=== PATIENT | female | born 1995 | race Caucasian/White ===

== ENCOUNTER 2024-10-21 11:56 | Outpatient (CLI) | payer BC, SELFPAY ==
--- NOTE | 2024-10-21 12:15 | CRLHL7_ITS ---
For Patients: As a result of the Century Cures Act, medical imaging exams and procedure reports are released immediately into your electronic medical record. You may view this report before your referring provider. If you have questions, please contact your health care provider. OB ULTRASOUND 14 WEEKS ANATOMY SURVEY, 10/21/2024 CLINICAL HISTORY: Anatomy. TECHNIQUE: Transabdominal OB ultrasound. COMPARISON: None. FINDINGS: GA: 24 weeks, 3 days. Position: Vertex. Placenta Cord: Posterior. Technique: TA. Placenta tip to internal OS: 9.1 cm. Umbilical Cord: 3 vessel cord. Placental Insertion: Central. Amniotic Fluid: 4.3 cm. Cervix: Visualized, Technique: TA. Length of closed cervix: 4.4 cm. Observed Structures: Cerebellum: 2.7 cm, 25 weeks 6 days Cisterna Magna: 5.4 mm Nuchal Fold: 4.2 mm Lateral Ventricle: 3.8 mm CSP Midline Falx Choroid Plexus Spine Abdomen: Stomach Abd Cord Insert Urinary Bladder Kidneys Diaphragm Face: Nose/Lips Orbital View Profile Limbs: Upper Extremities Lower Extremities Hands Feet Vascular: 4 Chamber Heart LVOT RVOT 3VV 3VTV Biometry: BDP: 5.8 cm, 23 weeks 5 days. 19.6% HC: 22.0 cm, 24 weeks, 0 days. 18.0% AC: 19.6 cm, 24 weeks 2 days. 36.7% FL: 4.5 cm, 24 weeks 5 days. 45.8% Heart Rate: 155 bpm Age by this US: 24 weeks 4 days LUCAS by this US: 02/06/2025 EFW: 691.6 grams, 1 lb 8 oz Percentile by LUCAS: 38.8% IMPRESSION: Concordance of clinical and sonographic dating. Normal anatomic survey. Thomas Chavez M.D. Diagnostic Radiologist [email or web address] Transcribed: DW/Dictated by: Thomas Chavez MD @ 10/21/2024 2:11:00 PM (Electronically Signed)
== END 2024-10-21 11:57 | disposition home or self-care (01) ==
LOC: US 11:57
PROVIDERS: Visit Provider Advanced Practice Midwife
DX: Z34.92 Encounter for supervision of normal pregnancy, unspecified, second trimester (principal); Z3A.24 24 weeks gestation of pregnancy
CPT/HCPCS: 76805

== ENCOUNTER 2024-10-22 14:46 | Outpatient (CLI) | payer BC, SELFPAY ==
[2024-10-22 15:05] VITALS: BP 131/83; PULSE 87; RESP 16; TEMP 36.7
[2024-10-22 15:53] LABS: Appearance Urine Clear (Clear); Bilirubin Urine Negative (Negative); Blood Urine 2+ (Negative); Color Urine Yellow (Yellow); Glucose Urine Negative (Negative); Ketones Urine Negative (Negative); Leukocyte Esterase Urine 1+ (Negative); Nitrite Urine Negative (Negative); Protein Urine Negative (Negative); Specific Gravity Urine <= 1.005 (1.000-1.030); Urobilinogen Urine 0.2 (0.2-1.0)
[2024-10-22 15:55] LABS: Bacteria Urine Few; Squamous Epithelial Cell Urine Few (None-Few)
--- NOTE | 2024-10-22 15:55 | P.OBLDTN_ITS ---
OB - Triage/Final Diagnosis Visit Information Date of evaluation: 10/22/24 Narrative: Sulma is a 28 year old 1 para 0 at 24.4 weeks gestation by LMP, who presents with vaginal bleeding. She states that she had bright red bleeding with very small clots last night after a bowel movement associated with constipation. The decreased overnight and was gone by the morning. No further bleeding until 1400 this afternoon when she had some dark pink bleeding when she wiped. She has had not had any cramping. She denies discharge, itching, burning,or signs of a UTI besides what she feels is a normal increase if frequency due to . Encouraged bowel regiments to help prevent future constipation. A speculum exam was performed and the cervix is closed. No vaginal bleeding noted from the cervix. A wet prep was collected and there was a scan amount of blood noted on the swab as well as a yellow colored discharge. FHR tracing is reactive for this gestation without contractions noted on the toco or by palpation. She will stay until the wet prep is resulted and is aware that final results for the UA/UC will not be until tomorrow or the following day. Wet prep results before discharge and was +for BV. Metronidazole prescription sent. Evaluation Laboratory results: Laboratory Tests 10/22/24 Range/Units 15:50 Urine Color Pending Urine Appearance Pending Urine pH Pending Ur Specific Colton Pending Urine Protein Pending Urine Glucose (UA) Pending Urine Ketones Pending Urine Blood Pending Urine Nitrite Pending Urine Bilirubin Pending Urine Urobilinogen Pending Ur Leukocyte Esterase Pending Urine RBC Pending Urine WBC Pending Ur Squamous Epith Cells Pending Urine Bacteria Pending Vaginal Trichomonas Pending Vaginal Yeast Pending Vaginal Clue Cells Pending Vital signs: Vital Signs - 24 hr 10/22/24 15:05 Pulse Rate 87 Blood Pressure 131/83
[2024-10-22 15:56] LABS: Clue Cells >20% Clue Cells Seen (None Seen); Trichomonas No Trichomonas Seen (None Seen); Yeast No Yeast Seen (None Seen)
--- NOTE | 2024-10-22 17:33 | PC.OBNST ---
NST Note NST Note Start: 10/22/24 14:57 Freq: ONCE Status: Active Protocol: Document 10/22/24 17:31 ABP (Rec: 10/22/24 17:33 ABP [id number]) NST Note 1 Para (# of births) 0 EDC 02/07/25 Gestational Age In Weeks & Days 24 Weeks & 4 Days Patient Presented with Complaint(s) of Vaginal bleeding Appropriate for Gestational Age Yes KEMI Emery RNC Date 10/22/24 Appropriate for Gestational Age Yes KEMI Meng RN Date 10/22/24 OB NST charge Yes Complete NST Note via Write Note Yes The provider's electronic signature indicates the NST is reactive/appropriate for gestational age. *Note to provider: If an addendum is required, open the patient's chart and click on the note under the Nurse/Allied Health tab.
== END 2024-10-22 16:20 | disposition home or self-care (01) ==
LOC: OB OUT 14:48 → OB 14:48
PROVIDERS: Advanced Practice Midwife; Visit Provider Advanced Practice Midwife
DX: O46.92 Antepartum hemorrhage, unspecified, second trimester (principal); Z3A.24 24 weeks gestation of pregnancy
CPT/HCPCS: 59025; 81001; 87086; 87210; G0463

== ENCOUNTER 2024-11-19 12:53 | Outpatient (CLI) | payer BC, SELFPAY | END 2024-11-19 12:54 | disposition home or self-care (01) | LOC: FRMREF 12:53 | PROVIDERS: Visit Provider Advanced Practice Midwife | DX: Z34.93 Encounter for supervision of normal pregnancy, unspecified, third trimester (principal); Z3A.28 28 weeks gestation of pregnancy | CPT/HCPCS: 86592; 86787 ==

== ENCOUNTER 2025-01-14 13:55 | Outpatient (CLI) | payer BC, SELFPAY | END 2025-01-14 13:56 | disposition home or self-care (01) | LOC: NFLDREF 01-16 00:19 | PROVIDERS: Visit Provider Advanced Practice Midwife | DX: Z34.03 Encounter for supervision of normal first pregnancy, third trimester (principal) | CPT/HCPCS: 87081; 87653 ==

== ENCOUNTER 2025-02-11 15:35 | Outpatient (CLI) | payer BC, SELFPAY ==
[2025-02-12 17:22] LABS: Strep B DNA Probe Negative (Negative)
[2025-02-13 11:34] LABS: Strep B Susceptibility Needed? No
== END 2025-02-11 15:36 | disposition home or self-care (01) ==
LOC: FRMREF 15:45
PROVIDERS: Visit Provider Advanced Practice Midwife
DX: O48.0 Post-term pregnancy (principal); Z3A.40 40 weeks gestation of pregnancy
CPT/HCPCS: 87081; 87653

== ENCOUNTER 2025-02-13 13:50 | Outpatient (CLI) | payer BC, SELFPAY ==
--- NOTE | 2025-02-13 14:00 | CRLHL7_ITS ---
For Patients: As a result of the Cures Act, medical imaging exams and procedure reports are released immediately into your electronic medical record. You may view this report before your referring provider. If you have questions, please contact your health care provider. OB ULTRASOUND BIOPHYSICAL PROFILE, 02/13/2025 CLINICAL HISTORY: Post dates. TECHNIQUE: Real time cherry scale imaging of the fetus was performed. Transabdominal imaging performed. COMPARISON: 10/21/2024. FINDINGS: LUCAS by LMP: 02/07/2025. GA: 40 weeks 6 days. GESTATION: Single. CERVIX: Not visualized. POSITIONING: Vertex. AMNIOTIC FLUID: 2.8 cm SDP. BIOPHYSICAL PROFILE: Gross Body Movements: 2 Tone: 2 Respiratory Activity: 2 Amniotic Fluid SDP: 2 Total Score: 8/8 PLACENTA: Technique: TA. Placenta Position: Fundal. DOPPLERS: Heart Rate: 159 bpm. IMPRESSION: 1. Normal biophysical profile score 8/8. 2. Vertex position. Thomas Chavez M.D. Diagnostic Radiologist [email or web address] Transcribed: 3:34 pm DW/Dictated by: Thomas Chavez MD @ 02/13/2025 3:26:00 PM (Electronically Signed)
== END 2025-02-13 13:51 | disposition home or self-care (01) ==
LOC: US 13:50
PROVIDERS: Visit Provider Advanced Practice Midwife
DX: O48.0 Post-term pregnancy (principal); Z3A.40 40 weeks gestation of pregnancy
CPT/HCPCS: 76819

== ENCOUNTER 2025-02-15 04:15 | Inpatient (IN) | payer BC, SELFPAY ==
[2025-02-15] VITALS (30 sets, daily range): BP systolic 109–140; BP diastolic 57–84; PULSE 72–124; RESP 16–18; TEMP 36.4–37.2; O2SAT 95–98; BMI 37.4
--- NOTE | 2025-02-15 07:16 | W.PM.LDBA ---
Subjective History of Present Illness Date Seen: 02/15/25 Narrative: Sulma is a 29 yo at 41 1/7 weeks gestation being admitted to Labor and Delivery for spontaneous onset of labor. She reports her contraction started Sunday evening and were irregular throughout the night into Sunday, sometimes 20-30 minutes or more apart. They became closer together Sunday evening. She had some bloody show but denies any leaking of fluid. She endorses movement. She has only had a little bit of rest since yesterday. She is coping well but was offered options this morning and has desired to try to shut down the lights and nap for about anhour. She is supported in labor by her , Pilo. Her full history and physical was dictated by Octaviano on 01/21/2025. Please see this for details. Specific Issues/Plans G1 : [facility]o Transfer from [facility] at 22.4 weeks gestation H&P: Anya Ramirez CNM on 01/21/25 #Asthma, mild #Vaping, not currently using nicotine 07/08/2024: Blood type: A+, antibody screen negative.??? Hgb: 14.7??? Platelets: 370??? Rubella: Immune??? Varicella: not included in transfer records, immune RPR: non-reactive??? HBsAg: non-reactive??? Hep C: negative? HIV: negative??? UC: negative? GC/Chlamydia: negative/negative??? Pap (04/12/2023): NIL??? Genetic screenin08/06/2024, low risk? 1st trimester: 9.0 weeks by US, 9.3 weeks by LMP. Efren 02/07/2025 by LMP. SIUP.??? Anatomy scan: SIUP with posterior placenta and adequate amniotic fluid. Unremarkable anatomy with suboptimal views of heart and profile, follow up in 4 weeks recommended. EFW 25%ile. Other: 10/21/2024: Concordance of clinical and sonographic dating. Normal anatomic survey. Tdap: 12/04/24 Mental health: 12/19/24 HGB 01/01/25 GBS: 01/14/25 OB - Problem Based A/P Additional Plan (1) Pain during labor: Status: Acute (2) Spontaneous onset of labor: Status: Acute (3) Post term , 41 weeks: Status: Acute (4) Asthma: Status: Acute Plan ASSESSMENT:? 29 yo at 41.1 weeks gestation? complicated by:?Asthma, mild, Vaping, not currently using nicotine Labor type: Spontaneous, [place] labor? Category 1 FHR pattern.?? Labor complicated by: none? GBS negative? ? PLAN:? 1. Routine intrapartum cares as ordered. Continue with expectant management. Offered AROM, declines at this time. 2. Monitoring per policy, intermittent? 3. Planning unmedicated . Desires water . Consent signed. Hep C negative. Candidate for analgesia of choice.?? 4. Patient encouraged to reposition and ambulate to promote physiologic labor and .? 5. Anticipate ? Delivery/Labor/Induction Plan Plan: expectant management OB Exam Physical Exam Vital signs: Temp Pulse BP Pulse Ox 97.5 F L 100 110/71 97 02/15/25 05:51 02/15/25 04:22 02/15/25 04:22 02/15/25 04:22 Narrative: Vitals Reviewed Constitutional:? Alert and oriented x3 HEENT:? Normocephalic, atraumatic Neck:? Supple Lungs:? Clear to auscultation bilaterally Heart:? Regular rate and rhythm, no murmur, rub or gallop Abdomen:? Soft, nontender, and gravid. Vertex by Kam's, confirmed with cervical exam. Extremities:? No edema or erythema Cervix: 5 cm/100%/2 station/vertex per RN NST: 135 bpm/moderate variability/15x15 accelerations/no decelerations/contractions every 3-5 minutes Detailed Labor and Delivery Exam Patient Gravid: no
[2025-02-15] MEDS: fentaNYL 100 MCG/2 ML inj IVP (11:29)
[2025-02-15] MEDS: SODIUM CHLORIDE 0.9 % (FLUSH) 10 ML SYRINGE IVF (11:55)
[2025-02-15 12:06] LABS: Basophils Percent Auto 0.1 % (0.0-3.0); Eosinophils Percent Auto 0.1 % (0.0-7.0); Hematocrit 43.9 % (33.0-51.0); Immature Granulocytes Pct Auto 0.3 %; Lymphocytes Percent Auto 3.9 % (20-44); Mean Corpuscular HGB Conc 34 gm/dL (32-36); Mean Corpuscular Hemoglobin 30 pg (26-34); Mean Corpuscular Volume 89 fL (80-100); Monocytes Percent Auto 3.9 % (0.0-11.0); Neutrophils Percent Auto 91.7 % (42.0-72.0); Platelet Count* 219 K/uL (140-440); RDW Coefficient of Variation % 13.6 % (11.5-15.5); Red Blood Count 4.96 m/uL (4.00-5.20); White Blood Count* 18.26 K/uL (4.50-11.00)
[2025-02-15 12:09] LABS: Slide Review Reflex No
[2025-02-15] MEDS: ONDANSETRON 2 MG/ML inj 4 MG IV (13:34)
[2025-02-15] MEDS: OXYTOCIN 10 UNIT/ML INJ IM (16:46)
--- NOTE | 2025-02-15 17:20 | W.PM.OBVAGDE ---
OB Procedure Vag Delivery Mother Details Mother Details: The patient is a 29 year-old, 1, now Para 1, admitted on 02/15/25 at 41.1 weeks gestation. : 1 Para: 1 Weeks Gestation: 41.1 Admission Date: 02/15/25 Additional Details Amniotic Membrane Status: SROM Amniotic Membrane Rupture Date: 02/15/25 Amniotic Membrane Rupture Time: 07:50 Amniotic Membrane Fluid Description: Clear Analgesia/Anesthesia Type: Fentanyl (x1 dose) Waterbirth: Yes Pitcoin: Yes ([facility] only) Intrapartal Events: None Labor Onset: 11:00 Complete: 16:04 Pushin:04 Heart: heart tones during second stage were category II with decelerations during the contractions that resolved between. Baseline change noted with the last 10+ minutes of pushing with moderate variability. Delivery Details Delivery Date: 02/15/25 Delivery Time: 16:33 Route of delivery: Infant Gender: Female Infant Viability: Alive; Heart Rate Present Position at Delivery: OA Delivery Details: Patient was admitted for spontaneous onset of labor and progressed normally. She had SROM of clear fluid at 0750. She utilized position changes, the shower, activity, and a dose of IV fentanyl to help with labor progression and to get rest when able. She entered the tub at 1430. Patient requested cervical exam around that time and was 8.5 cm. She began to feel intense pressure at 1539 and anterior lip was palpated with SVE per patient request. She was encouraged to try positions to assist in resolution of lip and she did these successfuly. At completion of these she began to involuntarily push. Patient was assumed complete with pushing at 1604. of a viable female at 1633 in semi-reclined position in the tub. Vertex delivered OA. Tight nuchal cord was identified and reduced at the perineum. No shoulder. Body delivered easily and without incident. Infant passed to mothers abdomen. She was stimulated but limp and attempted to cry with weak effort decision was made to clamp and cut at <60 seconds. She was taken by the warmer and stimulated by the RN with vigourous cry. APGARS were 5 at one minute and 8 at five minutes respectively. Mouth was bulb suctioned. Intact placenta with a 3 vessel cord delivered spontaneously at 1638 in the tub. She was escorted out of the tub after with minimal bleeding. Fundus firm. 1st degree perineal laceration well approximated and hemostatic identified and not repaired. QBL 25 cc with EBL 300 cc for total of 325 cc. Mother and baby stable; mother plans to breastfeed. Infant weight pending. 1 Minute Interval Total Score: 5 5 Minute Interval Total Score: 8 Additional Details Shoulder Dystocia: No Placenta Delivery Time: 16:38 Placental Delivery Description: Spontaneous Procedure Done: Global Blood Loss: 325 Laceration: Perineal - 1st Degree (not repaired) Blood Loss Measurement Type: QBL (+ EBL in tub) Bakri Used: No Sponge/Need Count Correct: Yes Cord Vessel Description: 3 Vessels, Nuchal Cord, Tight and Reduced Event Summary Status: Mother and infant were stable after delivery. Disposition: floor
[2025-02-15] MEDS: IBUPROFEN 600 MG TABLET PO (21:47)
[2025-02-16 00:31] VITALS: BP 105/72; PULSE 103; RESP 18; O2SAT 96
[2025-02-16 00:32] VITALS: TEMP 36.9
[2025-02-16 05:35] VITALS: BP 107/73; PULSE 90; RESP 16; TEMP 36.5; O2SAT 96
[2025-02-16 09:24] VITALS: BP 106/66; PULSE 90; RESP 16; TEMP 36.7; O2SAT 97
--- NOTE | 2025-02-16 09:55 | PM.OBDSVD1 ---
DS: Providers Provider Date Seen: 02/16/25 Date of admission: 02/15/25 04:15 Primary care physician: Not a Local Provider Admitting Clinician: Mona Barrera CNM Attending Physician on discharge: Sergey Ramirez CNM Date of Discharge: 02/16/25 DS: Diagnosis Discharge Diagnosis (1) (normal spontaneous vaginal delivery): Status: Acute (2) care and examination immediately after delivery: Status: Acute (3) Lactating mother: Status: Acute Exam Narrative: Exam Narrative: VSS, afebrile GENERAL APPEARANCE: ?normal affect, alert, no distress MOOD: ?appropriate HEENT: normocephalic, neck supple, full ROM CHEST: ?Symmetrical chest wall movement. ?Normal respiratory effort. ?Clear to auscultation HEART: ?regular rate and rhythm ABDOMEN: ?soft, non-tender. Uterine fundus is firm, at Umbilicus, Midline and is appropriate for the stage of recovery. ?Bowel sounds present. PERINEUM: ?mild edema of the perineum, there is a 1st degree laceration that is healing well. EXTREMITIES: ?normal and no edema Const: Vital Signs, click to edit/add: Vital Signs - 24 hr 02/15/25 10:42 02/15/25 10:45 02/15/25 11:58 Temperature 98.6 F Pulse Rate 97 75 Pulse Rate [Pulse Oximeter] Respiratory Rate Blood Pressure 125/63 114/57 L Blood Pressure [Ri ght Arm] Pulse Oximetry Oxygen Delivery Ca thod 02/15/25 12:00 02/15/25 12:59 02/15/25 13:59 Temperature 98.4 F Pulse Rate 85 80 Pulse Rate [Pulse Oximeter] Respiratory Rate Blood Pressure 136/62 122/58 L Blood Pressure [Ri ght Arm] Pulse Oximetry Oxygen Delivery Ca thod 02/15/25 14:00 02/15/25 16:11 02/15/25 16:11 Temperature 98.0 F 98.1 F Pulse Rate 100 88 Pulse Rate [Pulse Oximeter] Respiratory Rate 16 Blood Pressure 120/75 128/84 Blood Pressure [Ri ght Arm] Pulse Oximetry 98 Oxygen Delivery Ca thod 02/15/25 16:44 02/15/25 16:45 02/15/25 17:00 Temperature Pulse Rate 111 H 112 H Pulse Rate [Pulse Oximeter] Respiratory Rate 16 Blood Pressure 140/70 H 112/65 Blood Pressure [Ri ght Arm] Pulse Oximetry Oxygen Delivery Ca thod 02/15/25 17:00 02/15/25 17:14 02/15/25 17:15 Temperature Pulse Rate 100 Pulse Rate [Pulse Oximeter] Respiratory Rate 16 16 Blood Pressure 125/67 Blood Pressure [Ri ght Arm] [facility] 17:29 02/15/25 17:30 02/15/25 17:45 Temperature Pulse Rate 105 H Pulse Rate [Pulse Oximeter] Respiratory Rate 16 16 Blood Pressure 137/72 Blood Pressure [Ri ght Arm] Pulse Oximetry [facility] 02/15/25 17:48 02/15/25 17:59 02/15/25 18:00 Temperature Pulse Rate 100 121 H Pulse Rate [Pulse Oximeter] Respiratory Rate 16 Blood Pressure 126/61 126/59 L Blood Pressure [Ri ght Arm] Pulse Oximetry [facility] 02/15/25 18:14 02/15/25 18:15 02/15/25 18:29 Temperature Pulse Rate 110 H 103 H Pulse Rate [Pulse Oximeter] Respiratory Rate 16 Blood Pressure 123/62 139/60 Blood Pressure [Ri ght Arm] Pulse Oximetry [facility] 02/15/25 18:30 02/15/25 20:08 02/16/25 00:31 Temperature 99.0 F Pulse Rate Pulse Rate [Pulse Oximeter] 124 H 103 H Respiratory Rate 16 18 18 Blood Pressure Blood Pressure [Ri ght Arm] 115/74 105/72 Pulse Oximetry 95 96 [facility] Room Air 02/16/25 00:32 02/16/25 05:35 02/16/25 09:24 Temperature 98.4 F 97.7 F 98.0 F Pulse Rate Pulse Rate [Pulse Oximeter] 90 90 Respiratory Rate 16 16 Blood Pressure Blood Pressure [Ri ght Arm] 107/73 106/66 Pulse Oximetry 96 [facility] Room Air Documenting provider has reviewed patient's vital signs: yes OB - DS: Summary Hospital Course Hospital Course: Sulma is a 29 y.o. who was admitted to L & D for labor. ?She had an uncomplicated NVD.?The patient feels well. ?The pain is well controlled with current medications. ?She has no new complaints. ?She is breast feeding and reports things are going well.? the patient has done well.? Vitals have been stable.? She has remained afebrile.? Has a good appetite, is tolerating a general diet. ?She is voiding without difficulty.? She is passing gas and has not had a bowel movement.? She is ambulating and denies any dizziness.? Has Small amount of rubra lochia. ?She is planning nothing for prevention. She is requesting a 24 hour discharge today. Peripartum Data Infant delivery method: Vaginal Laceration description: Perineal - 1st Degree complications: none Hiram Gender: Female Discharge Plan: Home A Gender: Female Infant Discharge Plan: Home Status at Discharge Functional status at discharge: independent ambulation Overall status at discharge: patient is progressing back to baseline Time Spent with Patient Time attestation: Total time spent providing and/or coordinating discharge services: Time spent: Less than 30 minutes Discharge Plan Discharge Disposition: Home, Self-Care Date of Admission: 02/15/25 04:15 Attending Provider on Discharge: Sergey Ramirez Primary Care Provider: Provider,Not a Local Condition: Stable Anticipated Discharge Date/Time: 02/16/25 18:00 Discharge Medications: New acetaminophen 500 mg Tablet 1,000 mg PO Q6H PRNQty: 0 0RF docusate sodium 100 mg Capsule 100 mg PO DAILY Qty: 90 1RF ibuprofen 600 mg Tablet 600 mg PO Q6H PRNQty: 60 0RF Continued acetyltyrosine-vitamin B6 350-5 mg capsule 1 cap PO DAILY calcium polycarbophil [Fiber (calcium polycarbophil)] 625 mg tablet 1,250 mg PO QDAY ondansetron 4 mg tablet,disintegrating 4 mg PO Q8H docosahexaenoic acid 200 mg capsule 200 mg PO DAILY Unisom (doxylamine) 25 mg tablet 25 mg PO QHS PRN albuterol 90 mcg/actuation aerosol 90 mcg inhalation .PRN DHA 200 mg capsule 200 mg PO DAILY docusate sodium [Colace] 100 mg capsule 100 mg PO QDAY Discharge Orders: Discharge Order (Routine); Ordered 02/16/25 Ordered By: Sergey Ramirez Patient Education: OB Over the Counter Medication Information, OB Vaginal/Breast Feeding Additional Instructions: Discharge instructions were reviewed with the patient including signs and symptoms of infection and home going medications Nothing vaginally for 6 weeks: no tampons or intercourse Off Work or School for 6 weeks 2-week visit: discuss feeding concerns, review control options and screen for anxiety/depression. 6-week visit for an annual exam. consultation services are available to all mothers and babies for the first year after delivery.? To make an appointment, please call [phone]. Activity Level: Activity as Tolerated Discharge Diet: Regular Follow Up Appointments: [facility] [Provider Group] Forms: [employer] Info Instructions
[2025-02-16] MEDS: IBUPROFEN 600 MG TABLET PO (11:29)
[2025-02-16 16:00] VITALS: BP 97/62; PULSE 70; RESP 16; TEMP 36.5; O2SAT 97
[2025-02-17 13:21] LABS: Rapid Plasma Reagin (RPR) Non Reactive (Non Reactive)
== END 2025-02-16 19:30 | disposition home or self-care (01) | DRG 560 ==
LOC: OB OUT 05:13 → OB 05:13
PROVIDERS: Admitting Provider Advanced Practice Midwife; Visit Provider Advanced Practice Midwife
DX: O48.0 Post-term pregnancy (principal); O70.0 First degree perineal laceration during delivery; Z3A.41 41 weeks gestation of pregnancy; Z37.0 Single live birth; O26.86 Pruritic urticarial papules and plaques of pregnancy (PUPPP); O76 Abnormality in fetal heart rate and rhythm complicating labor and delivery; J45.909 Unspecified asthma, uncomplicated
CPT/HCPCS: 36415; 76819; 85025; 86592; 86850; 86900; 86901; A9270; J2405; J2590; J3010

== ENCOUNTER 2025-02-25 08:38 | Outpatient (CLI) | payer BC, SELFPAY ==
--- NOTE | 2025-02-25 15:45 | W.PM.LAC.MC ---
Consult Note - Mom Date of Visit Date of visit: 02/25/25 Reason for consultation: Assistance Needed (not able to latch without a nipple shield) Visit Code: Visit Patient's Information Phone number: [phone] : 1 Para: 1 Allergies Penicillins Allergy (Severe, Verified 02/15/25 04:46) Hives Mother's Medical History: Medical History (Updated 02/19/25 @ 00:01 by Background Dadeo) Vaping nicotine dependence, tobacco product ?F17.290 - Nicotine dependence, other tobacco product, uncomplicated (ICD-10) Polymorphic eruption of ?O26.86 - Pruritic urticarial papules and plaques of (PUPPP) (ICD-10) Asthma ?J45.909 - Unspecified asthma, uncomplicated (ICD-10) PCOS (polycystic ovarian syndrome) ?E28.2 - Polycystic ovarian syndrome (ICD-10) Elevated hemoglobin A1c ?R73.09 - Other abnormal glucose (ICD-10) Delivery Information Delivery type: Vaginal Gestational Age: 41+1 Gestational Weight For Age: AGA Weight: 3.41 kg Discharge Weight: 3.266 kg Percentage weight loss: 4.3 Baby's Information Medications: PNV, Ibu, Acetaminophen, Vit D, stool softener Baby's Age at Visit: 1 days Baby's Provider or Clinic: [facility] Jaundice: No Past Experience Past Experience: No Current Frequency of Day Feedings: every 2 hrs, needs waking for feedings, not always interested Frequency of Night Feedings: every 3 hrs, wakes more independently Both Breasts: Yes (both offered) Suck: strong Latch: with shield, painful, L>R Length of Time: 12-20 minutes Pumping Pumping: Yes Quantity Pumped: about 2 oz after a feeding Supplementing EBM Supplement: No Formula Supplement: No Baby Elimination Number of Wet Diapers a Day: ea feeding Number of BM a Day: 5-6/day, yellow and seedy Breast/Nipple Condition Breast Information: Breasts are symmetrical with rounded lower quadrants, intramammary distance is less than 1.5 inches. No erythema. Nipples are supple, everted prior to feeding. Breast Shape: Round Engorgement: No Maternal Nipple Condition - Left: Common Nipple Maternal Nipple Condition - Right: Common Nipple Sore Nipples: Yes Interventions for Sore Nipples: Lansinoh/Nipple Cream and Soothies/Hydrogel Pads Baby Assessment Skin: Normal Tongue/frenulum: Normal/elastic Palate: Average Lips: Relaxed and Symmetrical Jaw Alignment: Symmetrical Mucosa: [employer], moist Onsite Observation Pre-Feed weight: 3.31 kg (up 170gms in 7 days, average 24gm/day) Post-Feed weight: 3.356 kg Milk Transferred (mL): 46 Position: Cross cradle Attachment/latch-on achieved: Easily (able to latch baby without nipple shield using breast sandwich/asymmetric latch technique) Suck pattern: Suck burst and normal rest Swallow: Audible, consistent and Gulping Behavior following feed: Alert, content Pre-Nursing Left Nipple: Within Normal Limits Pre-Nursing Right Nipple: Within Normal Limits Post-Nursing Left Nipple: Within Normal Limits Post-Nursing Right Nipple: Within Normal Limits Assessments/Interventions Assessments/Interventions: Avery latched well to mom's LEFT breast, latched easily without shield and stayed nursing for 6 minutes. Transferred 26 ml of milk and unlatched herself Avery then latched to mom's RIGHT breast, latched easily and without shield and nursed for another 8 minutes Transferred 20 ml of milk. Total milk transferred was 46 ml; avery offered breast to latch back on and declined, was relaxed and content. Mom does not feel empty and able to easily express milk to offer baby and baby purses lips shut Isrraele needed minimal support to stay latched; mom kept baby drawn close to abdomen and this was enough Education provided: Early feeding cues to maximize timing of latching, Asymmetric latch technique for wide/deep latch to increase milk, Transfer for baby and increase comfort for mom, Supply/demand nature of milk supply, Sore nipple treatment options, Use of nipple shield (if needed, ensure deep latch to heal/prevent nipple soreness and prevent nipple shield from slipping off mom's nipple) and Pumping for milk management Follow-Up Suggested follow up: Appointment as needed Time Spent Time spent with patient (min): 75 Meds Home Medications and Allergies Home Medications ?Medication ?Instructions ?Recorded ?Confirmed ?Type acetyltyrosine 350 mg-vitamin B6 5 1 cap PO DAILY 10/08/24 02/15/25 History mg capsule albuterol 90 mcg/actuation aerosol 90 mcg inhalation .PRN 10/08/24 02/15/25 History inhaler calcium polycarbophil 625 mg 1,250 mg PO QDAY 10/08/24 02/15/25 History tablet (Fiber (calcium polycarbophil)) docosahexaenoic acid 200 mg capsule 200 mg PO DAILY 10/08/24 02/15/25 History doxylamine succinate 25 mg tablet 25 mg PO QHS PRN 10/08/24 02/15/25 History (Unisom (doxylamine)) ondansetron 4 mg disintegrating 4 mg PO Q8H 10/08/24 02/15/25 History tablet docosahexaenoic acid 200 mg 200 mg PO DAILY 12/19/24 02/15/25 History capsule ( DHA) docusate sodium 100 mg capsule 100 mg PO QDAY 02/11/25 02/15/25 History (Colace) acetaminophen 500 mg tablet 1,000 mg (2 x 500 mg) PO Q6H PRN 02/16/25 Rx #0 tabs docusate sodium 100 mg capsule 100 mg PO DAILY #90 caps 02/16/25 Rx ibuprofen 600 mg tablet 600 mg PO Q6H PRN #60 tabs 02/16/25 Rx Allergies Allergy/AdvReac Type Severity Reaction Status Date / Time Penicillins Allergy Severe Hives Verified 02/15/25 04:46
== END 2025-02-25 08:39 | disposition home or self-care (01) ==
LOC: OB LAC 08:38
PROVIDERS: Visit Provider Obstetrics & Gynecology
DX: Z39.1 Encounter for care and examination of lactating mother (principal)
CPT/HCPCS: G0463

== ENCOUNTER 2025-08-05 07:55 | Outpatient (CLI) | payer BC, SELFPAY ==
--- NOTE | 2025-08-05 08:15 | MR_ITS ---
EXAM: MRI EXAMINATION OF THE LEFT WRIST WITHOUT CONTRAST CLINICAL INFORMATION: Female, 29 years old, with left wrist pain and swelling. INDICATION: Evaluate for cyst. PRIOR SURGERY: None reported. PLAIN FILMS: None available. COMPARISONS: No prior MRIs available. TECHNICAL INFORMATION: Using a 1.5T MR scanner and a localizing surface coil: coronals: T1, PDFS, 3D T2 sagittals: PDFS axials: PD, PDFS SEDATION: None CONTRAST: None FINDINGS: Bones and joints: No stress/occult fracture, bone marrow edema, or carpal bone osteonecrosis. No discrete osteochondral lesion. No significant effusion in the distal radioulnar, radiocarpal, midcarpal, or carpometacarpal joint spaces. Triangular fibrocartilage: The triangular fibrocartilage proper, distal dorsal and volar radioulnar ligaments, ulnar collateral ligament/meniscal homologue, ulnotriquetral, and ulnolunate ligaments are intact. The extensor carpi ulnaris is unremarkable. Ligaments: No evidence for scapholunate or lunotriquetral interosseous ligament disruption. Interosseous distances between the scaphoid, lunate and triquetrum appear uniform and normal. Alignment:?Type I lunate. The capitolunate angle measures 10? (<30? normal). The scapholunate angle measures 50? (30?-60? normal). Ulnar variance is neutral. Tendons: The flexor tendons are normal in caliber and signal intensity throughout their course including within the carpal tunnel. The tendons within the 1st-6th extensor compartments are intact. No significant tendinopathy, and without tenosynovitis, tendon split or tendon disruption. Neurovascular structures: The median nerve appears normal in caliber and signal intensity throughout its course including within the carpal tunnel. The ulnar nerve is intact and normal in appearance. No evidence for intrinsic/extrinsic mass within Guyon's canal. Soft tissues: Approximately 6 x 7 x 9 mm volar ganglion cyst arising from the STT joint (sagittal PDFS series 7 image 18, coronal T2 series 8 image 15, and axial PDFS series 4 image 13). IMPRESSION: 1. Approximately 6 x 7 x 9 mm volar ganglion cyst arising from the STT joint, which is in close proximity to the skin marker placed by the patient. 2. No ligamentous or TFCC sprain/tear. 3. No myotendinous abnormality. 4. No chondromalacia or osteochondral lesion/defect. 5. No fracture or osseous stress reaction. BC Electronically signed on 08/05/2025 3:10:00 PM by Tian Miller M.D.
== END 2025-08-05 07:56 | disposition home or self-care (01) ==
PROVIDERS: Visit Provider Physician Assistant Surgical
DX: M25.532 Pain in left wrist (principal); M67.432 Ganglion, left wrist; R22.32 Localized swelling, mass and lump, left upper limb
CPT/HCPCS: 73221